=== PATIENT | female | born 1935 | race Caucasian/White ===

== ENCOUNTER 2019-01-21 18:27 | Inpatient (IN) | payer MEDICARE, BC ==
[~2019-01-21] VITALS: Ht 157.5 cm; Wt 62.3 kg
--- NOTE | 2019-01-21 18:35 | NUR ---
PT AAOX4. BIBRA C/O R HIP PAIN SP FALL. PT TRIPPED ON CABLE. -KO. PT UNABLE TO EXTEND RIGHT LEG. NO ACUTE DISTRESS NOTED. RR EVEN AND UNLABORED. PLACED ON MONITOR AND PULSE OX. AWAITING MD FOR EVAL.
--- NOTE | 2019-01-21 18:35 | NUR ---
Note erasmo in EDM - 01/21/19 at 1847 by EVICTOR PT AAOX4. BIBRA C/O FALL. PT TRIPPED ON CABLE. -KO. NO ACUTE DISTRESS NOTED. RR EVEN AND UNLABORED. PLACED ON MONITOR AND PULSE OX. AWAITING MD FOR EVAL.
[2019-01-21 19:16] LABS: BASOPHILS # (AUTO) 0.1 /CMM (0.0-0.2); BASOPHILS % (AUTO) 0.8 % (0.0-2.0); EOSINOPHILS % (AUTO) 0.9 % (0.0-6.0); HEMATOCRIT 43 % (33-45); LYMPHOCYTES # (AUTO) 0.8 /CMM (0.8-4.8); LYMPHOCYTES % (AUTO) 4.7 % (20.0-44.0); MEAN CORPUSCULAR HGB CONC 33 g/dl (31.0-36.0); MEAN CORPUSCULAR VOLUME 94 fL (82-100); MONOCYTES % (AUTO) 11.8 % (2.0-12.0); NEUTROPHILS # (AUTO) 14.1 /CMM (1.8-8.9); NEUTROPHILS % (AUTO) 81.8 % (43.0-81.0); PLATELET COUNT (AUTO) 271 /CMM (150-450); RED BLOOD CELL COUNT(AUTO) 4.59 MIL/uL (4.0-5.2); WHITE BLOOD COUNT (AUTO) 17.3 K/uL (4.3-11.0)
[2019-01-21 19:25] LABS: CALCIUM, SERUM 9.8 mg/dL (8.5-10.1); CREATININE 1.3 mg/dL (0.6-1.3); POTASSIUM 3.7 mmol/L (3.5-5.1)
--- NOTE | 2019-01-21 19:46 | NUR ---
PAGED DR. BOX (ORTHO WEIGHBRIDGE OPERATOR)
--- NOTE | 2019-01-21 19:48 | NUR ---
PT RESTING COMFORTABLY. DENIES PAIN.
[2019-01-21 20:00] VITALS: BP 159/74
--- NOTE | 2019-01-21 20:21 | NUR ---
BED ASSIGNMENT 324-2
[2019-01-21] MEDS ORDERED: Z GUARD REMEDY 2 OZ OINT TP PRN (20:30)
[2019-01-21] MEDS ORDERED: ONDANSETRON HCL/PF 4 MG/2 ML VIAL IVP PRN (20:30)
[2019-01-21] MEDS ORDERED: MAGNESIUM HYDROXIDE 30 ML UDC PO PRN (20:30)
[2019-01-21] MEDS ORDERED: MAG HYDROX/AL HYDROX/SIMETH 30 ML UDC PO PRN (20:30)
--- NOTE | 2019-01-21 20:47 | NUR ---
REPORT GIVEN TO CORTES FOR CHARITO.
--- NOTE | 2019-01-21 20:53 | NUR ---
DR. HARLEY ON THE PHONE WITH ORTHO SYSTEMS DESIGN ENGINEER GONZALEZ TURNER
[2019-01-21 21:00] VITALS: BP 159/74
--- NOTE | 2019-01-21 21:00 | NUR ---
MS TIME STUDY TECHNICIAN INITIAL NOTES ADMIT PT FROM ER VIA [facility] ACCOMPANIED BY ER NURSE AND TECH. DX OF FEMUR FRACTURE. PT IS ALERT ORIENTED X4, LIVES BY HERSELF AND STATED SHE TRIPPED OVER AN EXTENSION CORD AT HOME AND FELL ONTO HER RIGHT LOWER EXTREMITY BUT DENIES ANY ANY HEAD TRAUMA OR LOSS OF CONSCIOUSNESS. SHE DENIES ANY HEADACHE, N/V , VISION CHANGED ,DIZZINESS OR LIGHTHEADEDNESS. DENIES ANY PAIN ON HER NECK AND BACK EXCEPT WHEN SHE'S MOVING . NO SIGNS OF ANY ACUTE DISTRESS NOTED. SKIN WARM AND DRY TO TOUCH, NO SOB NOTED WELL. ORIENTED PT WHERE SHE AT AND HOW TO USED THE CALL LIGHT SYSTEM AND ENCOURAGED HER TO USE IT IF SHE NEEDS SOME HELP OR ASSISTANCE. KEPT HER WARM AND COMFORTABLE AT ALL TIMES HAND HELD THE CALL LIGHT SYSTEM . WILL CONTINUE MONITORING.
[2019-01-21] MEDS: MORPHINE SULFATE INJ 2 MG/ML DISP.SYRIN IV PRN (21:41)
--- NOTE | 2019-01-21 21:41 | NUR ---
THRESHER BROOMCORN NOTES PAIN MGT. C/O RIGHT HIP/FEMUR PAIN , MORPHINE 1 MG ADMINISTERED BY ANOTHER NURSE KRISTA IVP ORDERED. WILL CONTINUE MONITORING.
--- NOTE | 2019-01-21 22:11 | NUR ---
MS PATIENT ACCESS REGISTRAR NOTES CHECKED PT TO RE-ASSESS HER PAIN AND SEEN RESTING COMFORTABLY IN BED WITH EYES CLOSED BUT AROUSE TO TOUCH. BREATHING EVEN AND NON-LABORED. WILL CONTINUE MONITORING. PLACE CALL LIGHT AT REACH.
[2019-01-21] MEDS: IV NS 0.9% 1,000 ML IV PRN (23:08)
[2019-01-22] MEDS: ACETAMINOPHEN 325 MG TABLET PO PRN (00:29)
--- NOTE | 2019-01-22 00:29 | NUR ---
MS REGISTERED NURSE FETAL NOTES PT/WOKE UP AND COMPLAINING OF MILD PAIN OVER HER RIGHT FEMUR. TYLENOL GIVEN WITH SIP OF WATER ORDERED. WILL CONTINUE MONITORING. KEPT HER WARM AND COMFORTABLE AT ALL TIMES. PLACE CALL LIGHT AT REACH.
--- NOTE | 2019-01-22 02:06 | NUR ---
ms iron notes pt resting at this time. no signs of any acute distress noted. kept her warm and comfortable at all times. place call light at reach, will continue monitoring.
--- NOTE | 2019-01-22 05:27 | NUR ---
MS CRIME SCENE EXAMINER NOTES PT RESTING WITH EYES CLOSED NO SIGNS OF ANY ACUTE DISTRESS OR ANY DISCOMFORT NOTED AT THIS TIME. KEPT HER WARM AND COMFORTABLE AT ALL TIMES. WILL CONTINUE MONITORING. CALL LIGHT AT REACH.
[2019-01-22 06:21] LABS: BASOPHILS % (AUTO) 0.4 % (0.0-2.0); HEMATOCRIT 35 % (33-45); LYMPHOCYTES # (AUTO) 0.6 /CMM (0.8-4.8); MEAN CORPUSCULAR HGB CONC 34 g/dl (31.0-36.0); MEAN CORPUSCULAR VOLUME 92 fL (82-100); MONOCYTES # (AUTO) 1.3 /CMM (0.1-1.30); NEUTROPHILS # (AUTO) 8.3 /CMM (1.8-8.9); NEUTROPHILS % (AUTO) 80.6 % (43.0-81.0); PLATELET COUNT (AUTO) 264 /CMM (150-450); RED BLOOD CELL COUNT(AUTO) 3.84 MIL/uL (4.0-5.2); WHITE BLOOD COUNT (AUTO) 10.2 K/uL (4.3-11.0)
[2019-01-22 06:41] LABS: CALCIUM, SERUM 8.8 mg/dL (8.5-10.1); CREATININE 1.1 mg/dL (0.6-1.3); MAGNESIUM 1.9 mg/dL (1.8-2.4); PHOSPHORUS 4.5 mg/dL (2.5-4.9); POTASSIUM 3.5 mmol/L (3.5-5.1)
[2019-01-22 06:46] LABS: THYROID STIMULATING HORMONE 0.698 uIU/mL (0.358-3.74)
--- NOTE | 2019-01-22 07:07 | NUR ---
MS VEGETABLE TIER CLOSING NOTES PT RESTING AT THIS TIME WITH IVF NS AT 75ML/HR INFUSING AT THIS TIME. NO SIGNS OF ANY DISCOMFORT NOTED EXCEPT WHEN SHE MOVE. STABLE KRISTA THE NIGHT . KEPT HER WARM AND COMFORTABLE AT ALL TIMES. BED IN LOW AND LOCK IN POSITION WITH SIDE RAILS X2 UP AND PLACE CALL LIGHT AT REACH. WILL ENDORSE TO AM NURSE FOR CONTINUITY OF CARE.
--- NOTE | 2019-01-22 07:30 | NUR ---
RN MS NOTES PT IN BED, AWAKE, ALERT AND ORIENTED, NOT IN DISTRESS, ON ROOM AIR, WITH COMPLAINT OF RIGHT HIP PAIN WHEN MOVING OR TURNING, IV FLUIDS INFUSING WELL, CALL LIGHT WITHIN REACH, KEPT WARM AND COMFORTABLE IN BED, NEEDS ATTENDED.
[2019-01-22] MEDS ORDERED: HYDR25TA4 PO (07:53)
[2019-01-22] MEDS ORDERED: LOVA20TA2 PO (07:53)
[2019-01-22 08:00] VITALS: BP 131/73
[2019-01-22] MEDS: VALSARTAN 80 MG TABLET PO SCH (08:57)
[2019-01-22] MEDS ORDERED: PANTOPRAZOLE 40 MG VIAL IV SCH (09:00)
--- NOTE | 2019-01-22 09:00 | NUR ---
RN MS NOTES PT SEEN BY DR. VASQUEZ AND YUE ROTH FOR ORTHO, PLAN OF CARE DISCUSSED WITH PT, VERBALIZED UNDERSTANDING, NEEDS ATTENDED.
[2019-01-22] MEDS: MORPHINE SULFATE INJ 2 MG/ML DISP.SYRIN IV PRN ×2 (10:02→17:08)
--- NOTE | 2019-01-22 13:00 | NUR ---
RN MS NOTES PT RESTING COMFORTABLY IN BED, PAIN MEDS GIVEN FOR PAIN MANAGEMENT, TOLERATING CURRENT DIET, CALL LIGHT WITHIN REACH, NEEDS ATTENDED.
[2019-01-22 18:00] VITALS: BP 155/72
--- NOTE | 2019-01-22 18:15 | NUR ---
RN MS NOTES PT IN BED, AWAKE, ALERT AND ORIENTED, PAIN MEDS GIVEN FOR PAIN MANAGEMENT, IV FLUIDS INFUSING WELL, CALL LIGHT WITHIN REACH, INSERTED DERAS CATHETER PER ORDER OF DR. CARMICHAEL, TOLERATED WELL, DRAINING WELL WITH CLEAR, YELLOW URINE, TOLERATING CURRENT DIET, KEPT WARM AND COMFORTABLE IN BED.
[2019-01-22] MEDS: IV NS 0.9% 1,000 ML IV PRN (19:05)
--- NOTE | 2019-01-22 19:31 | NUR ---
MS RN OPENING NOTES PATIENT IN BED, ALERT AND ORIENTED X4. BREATHING EVEN AND UNLABORED ON ROOM AIR. DENIES ACUTE DISTRESS, NO ACUTE PAIN. IV ON R WRIST #20 G WITH NS AT 75ML/HR RUNNING. CLEAN, DRY AND INTACT. SHOWS NO SIGNS OF REDNESS, NO INFILTRATION. DERAS CATHETER IS IN PLACE AND FLOWING. SAFETY PRECAUTION ARE IN PLACE. BED IN LOWEST POSITION, LOCKED, AND CALL LIGHT KEPT WITHIN REACH. WILL CONTINUE TO MONITOR.
[2019-01-22 20:00] VITALS: BP 150/70
[2019-01-22] MEDS ORDERED: LOVASTATIN (NON FORMULARY) 20 MG TABLET PO SCH (22:00)
[2019-01-22] MEDS: ATORVASTATIN 10 MG TABLET PO SCH (22:15)
[2019-01-23] VITALS (9 sets, daily range): BP systolic 107–148; BP diastolic 49–76
[2019-01-23 06:38] LABS: BASOPHILS % (AUTO) 0.4 % (0.0-2.0); EOSINOPHILS % (AUTO) 0.7 % (0.0-6.0); HEMATOCRIT 33 % (33-45); HEMOGLOBIN 11.1 g/dL (11.5-14.8); LYMPHOCYTES # (AUTO) 0.5 /CMM (0.8-4.8); LYMPHOCYTES % (AUTO) 5.8 % (20.0-44.0); MEAN CORPUSCULAR HGB CONC 34 g/dl (31.0-36.0); MEAN CORPUSCULAR VOLUME 92 fL (82-100); MONOCYTES # (AUTO) 1.4 /CMM (0.1-1.30); NEUTROPHILS # (AUTO) 7.4 /CMM (1.8-8.9); NEUTROPHILS % (AUTO) 78.1 % (43.0-81.0); PLATELET COUNT (AUTO) 205 /CMM (150-450); RED BLOOD CELL COUNT(AUTO) 3.57 MIL/uL (4.0-5.2); WHITE BLOOD COUNT (AUTO) 9.4 K/uL (4.3-11.0)
--- NOTE | 2019-01-23 06:44 | NUR ---
MS RN CLOSING NOTES PATIENT ASLEEP, EASILY AROUSED. ALERT AND ORIENTED X4. BREATHING EVEN AND UNLABORED ON ROOM AIR. DENIES ACUTE DISTRESS, NO ACUTE PAIN. IV ON R WRIST #20 G WITH NS AT 75ML/HR RUNNING. CLEAN, DRY AND INTACT. SHOWS NO SIGNS OF REDNESS, NO INFILTRATION. DERAS CATHETER IS IN PLACE FLOWING CLEAR AND YELLOW. ROUTINE MEDS GIVEN ORDERED. ATTENDED TO PATIENTS NEEDS. PATIENT KEPT CLEAN, DRY, AND COMFORTABLE. SAFETY PRECAUTION ARE IN PLACE. BED IN LOWEST POSITION, LOCKED, AND CALL LIGHT KEPT WITHIN REACH. WILL ENDORSE TO ONCOMING NURSE
[2019-01-23 07:03] LABS: ALBUMIN 2.7 g/dL (3.4-5.0); BILIRUBIN,TOTAL 0.7 mg/dL (0.2-1.0); CALCIUM, SERUM 8.3 mg/dL (8.5-10.1); CREATININE 0.8 mg/dL (0.6-1.3); MAGNESIUM 1.9 mg/dL (1.8-2.4); PHOSPHORUS 2.5 mg/dL (2.5-4.9); POTASSIUM 3.5 mmol/L (3.5-5.1); TOTAL PROTEIN, SERUM 5.6 g/dL (6.4-8.2)
--- NOTE | 2019-01-23 07:15 | NUR ---
MS RN NOTES RECEIVED PATIENT IN BED, ALERT AND ORIENTED X4. NO SOB. DENIES ANY C/O PAIN NOR DISCOMFORT AT THIS TIME. RIGHT WRIST G# 20 INTACT AND PATENT INFUSING 75ML/HR NOEL WELL. NPO STATUS FOR SCHEDULED INTRAMEDULLARY RODDING OF RIGHT HIP. BED IN LOWEST POSITION, LOCKED. CALL LIGHT WITHIN REACH. RESTING COMFORTABLY IN BED.
[2019-01-23] MEDS: IV NS 0.9% 1,000 ML IV PRN ×2 (08:45→22:24)
[2019-01-23] MEDS: VALSARTAN 80 MG TABLET PO SCH (08:51)
[2019-01-23] MEDS: MORPHINE SULFATE INJ 2 MG/ML DISP.SYRIN IV PRN (09:44)
--- NOTE | 2019-01-23 09:45 | NUR ---
MS RN NOTES XUAN FROM OR CALLED AND RECEIVED ORDER FROM Haydee BREWER FOR TYPE AND SCREEN STAT AND BLOOD TRANSFUSION, CARRIED OUT. INFORMED XUAN FROM OR THAT PATIENT C/O PAIN AND OK TO GIVE PAIN MED AT THIS TIME. PAT REMAINS TO BE NPO.
--- NOTE | 2019-01-23 12:19 | NUR ---
MS RN NOTES PATIENT OFF UNIT, WENT TO OR FOR INTRAMEDULLARY RODDING OF RIGHT HIP. PATIENT LEFT UNIT IN STABLE CONDITION. PATIENT DID NOT WANT TO REMOVE RING AND WATCH, INFORMED PATIENT THAT BELONGINGS WILL BE PUT IN SAFE BUT PATIENT REFUSED AND WANTS TO BRING IT WITH HER, HEATHER AT BEDSIDE ALSO EDUCATED PATIENT ABOUT BELONGINGS PRIOR TO LEAVING UNIT FOR OR BUT PATIENT REFUSED.
[2019-01-23] MEDS ORDERED: BUPIVACAINE 0.5 % PF 150 MG/30 ML VIAL ONE (13:44)
[2019-01-23] MEDS ORDERED: BACITRACIN 50000 UNITS/VIAL ONE (13:44)
[2019-01-23] MEDS ORDERED: SEVOFLURANE 250 ML BOTTLE IH ONE (13:55)
[2019-01-23] MEDS ORDERED: DESFLURANE 240 ML BOTTLE IH ONE (13:55)
[2019-01-23 15:35] LABS: BASOPHILS # (AUTO) 0.1 /CMM (0.0-0.2); BASOPHILS % (AUTO) 0.4 % (0.0-2.0); EOSINOPHILS % (AUTO) 0.3 % (0.0-6.0); HEMATOCRIT 32 % (33-45); HEMOGLOBIN 10.7 g/dL (11.5-14.8); LYMPHOCYTES # (AUTO) 0.5 /CMM (0.8-4.8); LYMPHOCYTES % (AUTO) 2.4 % (20.0-44.0); MEAN CORPUSCULAR HGB CONC 33 g/dl (31.0-36.0); MEAN CORPUSCULAR VOLUME 93 fL (82-100); MONOCYTES # (AUTO) 2.4 /CMM (0.1-1.30); MONOCYTES % (AUTO) 11.8 % (2.0-12.0); NEUTROPHILS # (AUTO) 17.1 /CMM (1.8-8.9); NEUTROPHILS % (AUTO) 85.1 % (43.0-81.0); PLATELET COUNT (AUTO) 233 /CMM (150-450); RED BLOOD CELL COUNT(AUTO) 3.45 MIL/uL (4.0-5.2); WHITE BLOOD COUNT (AUTO) 20.1 K/uL (4.3-11.0)
[2019-01-23] MEDS ORDERED: HYDROCODONE/APAP 5/325MG 1 EACH TABLET PO PRN ×2 (16:00)
--- NOTE | 2019-01-23 16:00 | NUR ---
MS RN NOTES RECEIVED PATIENT FROM OR. NO SOB. DENIES ANY C/O PAIN NOR DISCOMFORT. SCD IN PLACE. IN NO APPARENT DISTRESS AT THIS TIME. DRESSING TO RT HIP INTACT. NO S/S OF BLEEDING. CALL LIGHT WITHIN REACH. ABLE TO VERBALIZE NEEDS.
--- NOTE | 2019-01-23 19:05 | NUR ---
MS RN CLOSING NOTES PATIENT RESTING COMFORTABLY IN BED, ALERT AND ORIENTED X4. NO SOB. OFFERED PAIN MED BUT DENIES ANY C/O PAIN NOR DISCOMFORT AT THIS TIME. RIGHT WRIST G# 20 INTACT AND PATENT INFUSING 75ML/HR NOEL WELL. DRESSING INTACT TO RT HIP. BED IN LOWEST POSITION, LOCKED. CALL LIGHT WITHIN REACH. RESTING COMFORTABLY IN BED. IN NO APPARENT DISTRESS.
--- NOTE | 2019-01-23 19:32 | NUR ---
MS RN RECEIVE PT IN BED A/O X 3, S/P IM RODDING OF RIGHT HIP WITH SURGICAL DRESSING INTACT NO S/S OF BLEEDING NOTED. STABLE AND NOT IN DISTRESS, SAFETY MEASURES AT ALL TIMES. WILL CONT TO MONITOR
[2019-01-23] MEDS: ATORVASTATIN 10 MG TABLET PO SCH (22:06)
[2019-01-23] MEDS: ANCEF 1 G in IV D5W 50 ML IV SCH (22:06)
[2019-01-23] MEDS: ACETAMINOPHEN 325 MG TABLET PO PRN (23:52)
[2019-01-24] MEDS: ANCEF 1 G in IV D5W 50 ML IV SCH (05:18)
--- NOTE | 2019-01-24 06:42 | NUR ---
PT ASLEEP AND EASILY AWAKEN, MONITORED FOR PAIN NO C/O OF PAIN AT THIS TIME. S/P R HIP IM RODDING DRESSING INTACT NO S/S OF INFECTION, DRESSING INTACT NO S/S OF BLEEDING NOTED. NEEDS ATTENDED AND ANTICIPATED. KEPT CLEAN, DRY AND COMFORTABLE. AM CARE RENDERED. ASSISTED REPOSITION Q2HR. OFFLOAD HEELS AND ELBOWS AT ALL TIMES. WBAT. SAFETY MEASURES AT ALL TIMES. WILL ENDORSE TO NEXT SHIFT.
[2019-01-24 06:46] LABS: BASOPHILS # (AUTO) 0.1 /CMM (0.0-0.2); BASOPHILS % (AUTO) 0.6 % (0.0-2.0); EOSINOPHILS % (AUTO) 0.4 % (0.0-6.0); HEMATOCRIT 26 % (33-45); HEMOGLOBIN 8.9 g/dL (11.5-14.8); LYMPHOCYTES # (AUTO) 0.9 /CMM (0.8-4.8); LYMPHOCYTES % (AUTO) 9.7 % (20.0-44.0); MEAN CORPUSCULAR HGB CONC 34 g/dl (31.0-36.0); MEAN CORPUSCULAR VOLUME 93 fL (82-100); MONOCYTES # (AUTO) 2.1 /CMM (0.1-1.30); MONOCYTES % (AUTO) 22.9 % (2.0-12.0); NEUTROPHILS % (AUTO) 66.4 % (43.0-81.0); PLATELET COUNT (AUTO) 189 /CMM (150-450); RED BLOOD CELL COUNT(AUTO) 2.77 MIL/uL (4.0-5.2)
[2019-01-24 06:49] LABS: ALBUMIN 2.3 g/dL (3.4-5.0); BILIRUBIN,TOTAL 0.5 mg/dL (0.2-1.0); CALCIUM, SERUM 8.2 mg/dL (8.5-10.1); CREATININE 1.3 mg/dL (0.6-1.3); PHOSPHORUS 2.8 mg/dL (2.5-4.9); POTASSIUM 4.1 mmol/L (3.5-5.1); TOTAL PROTEIN, SERUM 5.1 g/dL (6.4-8.2)
[2019-01-24 08:00] VITALS: BP 111/48
--- NOTE | 2019-01-24 08:00 | NUR ---
m/s clinical rehabilitation specialist: initial assessment received pt in bed awake, a/ox4 with dx: s/p right hip IM rodding. surgical dressing to right hip intact, clean, and dry. no c/o pain or any discomfort. f/c draining to gravity. for p.t. eval. instructed to call for assistance. will continue to monitor.
[2019-01-24] MEDS: VALSARTAN 80 MG TABLET PO SCH (08:04)
[2019-01-24] MEDS: ENOXAPARIN SODIUM 40 MG/0.4 ML DISP.SYRIN SQ SCH (08:52)
[2019-01-24 08:54] LABS: LYMPHOCYTES % (MANUAL) 9 % (16-48); MONOCYTES % (MANUAL) 14 % (0-11.0); NEUTROPHILS % (MANUAL) 77 (42-76)
[2019-01-24 08:57] LABS: APPEARANCE,URINE HAZY (CLEAR); BILIRUBIN,URINE NEGATIVE (NEGATIVE); BLOOD, URINE 1+ Ery/uL (NEGATIVE); COLOR,URINE YELLOW (YELLOW); PROTEIN,URINE 1+ mg/dl (NEGATIVE); UGLUCOSE NEGATIVE (NEGATIVE)
[2019-01-24 08:58] LABS: KETONES,URINE 1+ (NEGATIVE); LEUKOCYTE ESTERASE ,URINE NEGATIVE (NEGATIVE); NITRITE, URINE POSITIVE (NEGATIVE); UROBILINOGEN,URINE 0.2 EU/dL (0.2)
[2019-01-24 09:02] LABS: RBC,URINE 0-2 /HPF (0-2); WBC,URINE NONE SEEN /HPF (0-3)
[2019-01-24 09:04] LABS: BACTERIA,URINE Rare /HPF (None Seen)
--- NOTE | 2019-01-24 10:30 | NUR ---
m/s dna sequencing associate: p.t. eval p.t. in room at this time for eval and tx.
--- NOTE | 2019-01-24 12:00 | NUR ---
m/s aquatic facility manager: md visit seen and examined by dr. lubin at this time. pt resting comfortable in bed. will continue to monitor.
[2019-01-24 13:12] LABS: SQUAMOUS EPITHELIAL CELL,UR Few /HPF (None Seen)
--- NOTE | 2019-01-24 13:50 | NUR ---
m/s pipe out worker: ortho f/u pato bailey (p.a.) here and informed him that pt is not ready to remove her cooley catheter, stated, "that's fine, tomorrow is okay." will endorsed accordingly.
--- NOTE | 2019-01-24 14:30 | NUR ---
m/s long winder tender: notes pato bailey (jaimee) at bedside at this time.
[2019-01-24 16:00] VITALS: BP 111/51
--- NOTE | 2019-01-24 16:30 | NUR ---
m/s household worker: notes pt resting comfortable. no c/o pain or any discomfort. instructed to call for assistance. will continue to monitor.
[2019-01-24] MEDS: ACETAMINOPHEN 325 MG TABLET PO PRN (18:05)
--- NOTE | 2019-01-24 18:20 | NUR ---
m/s swimming pool maintenance: notes resting comfortable in bed. no distress noted. needs attended. instructed to call for assistance. will monitor.
--- NOTE | 2019-01-24 19:00 | NUR ---
m/s woods superintendent: notes report given to emely (rn) for continuity of care.
--- NOTE | 2019-01-24 20:00 | NUR ---
RN NOTES PATIENT ALERT AND ORIENTED X4, STABLE ON ROOM AIR, NO COMPLAIN OF PAIN, S/P RIGHT HIP IM RODDING 01/23/19, DRESSING TO RIGHT THIGH DRY AND INTACT, DENIES NUMBNESS, DERAS CATHETER DRAINING WELL WITH CLEAR AND YELLOW URINE, KEPT SAFE, WILL CONTINUE TO MONITOR
[2019-01-24 20:45] VITALS: BP 128/53
[2019-01-24] MEDS: ATORVASTATIN 10 MG TABLET PO SCH (21:20)
[2019-01-24] MEDS: IV NS 0.9% 1,000 ML IV PRN (21:55)
--- NOTE | 2019-01-25 05:42 | NUR ---
PATIENT TRANSFERRED TO 200 IN IN STABLE CONDITION. NO C/O PAIN OR DISCOMFORT. PERIPHERAL LINE INTACT AND PATENT. ALL BELONGINGS TAKEN WITH PATIENT. REPORT GIVEN TO ROSALIA FOR CONTINUATION OF CARE
--- NOTE | 2019-01-25 06:39 | NUR ---
RN NOTES PATIENT ALERT AND ORIENTED X4, STABLE ON ROOM AIR, NO COMPLAIN OF PAIN, DERAS CATHETER DISCONTINUED, EDUCATED PATIENT REGARDING S/S OF URINARY RETENTION, ENCOURAGED PATIENT TO AMBULATE TO THE TOILET OR USE BEDSIDE COMMODE TO VOID. DRESSING DRY AND INTACT, DENIES NUMBNESS, ABLE TO PERFORM PLANTARFLEXION AND DORSIFLEXION. CONTINUE PT, PAIN MANAGEMENT, POSSIBLE DC TO [facility]
--- NOTE | 2019-01-25 07:29 | NUR ---
MS RN OPENING NOTE RECEIVED PATIENT IN BED SLEEPING COMFORTABLY. PATIENT IN NO ACUTE DISTRESS. NO SOB NOTED. PATIENT BREATHING IS EVEN AND UNLABORED. NO FACIAL GRIMACING NOTED. PATIENT DRESSING IS DRY AND INTACT. PATIENT BED IS LOCKED AND IN LOWEST POSITION. CALL LIGHT WITHIN REACH. BED ALARM IS ON. SAFETY PRECAUTIONS IN PLACE. WILL CONTINUE TO MONITOR.
[2019-01-25 07:33] LABS: BASOPHILS # (AUTO) 0.1 /CMM (0.0-0.2); BASOPHILS % (AUTO) 0.8 % (0.0-2.0); EOSINOPHILS % (AUTO) 2.6 % (0.0-6.0); HEMATOCRIT 22 % (33-45); HEMOGLOBIN 7.5 g/dL (11.5-14.8); LYMPHOCYTES # (AUTO) 0.7 /CMM (0.8-4.8); LYMPHOCYTES % (AUTO) 6.8 % (20.0-44.0); MEAN CORPUSCULAR HGB CONC 34 g/dl (31.0-36.0); MEAN CORPUSCULAR VOLUME 93 fL (82-100); MONOCYTES # (AUTO) 1.7 /CMM (0.1-1.30); MONOCYTES % (AUTO) 16.6 % (2.0-12.0); NEUTROPHILS # (AUTO) 7.4 /CMM (1.8-8.9); NEUTROPHILS % (AUTO) 73.2 % (43.0-81.0); PLATELET COUNT (AUTO) 186 /CMM (150-450); RED BLOOD CELL COUNT(AUTO) 2.38 MIL/uL (4.0-5.2); WHITE BLOOD COUNT (AUTO) 10.2 K/uL (4.3-11.0)
[2019-01-25 08:00] VITALS: BP 117/60
[2019-01-25 08:00] LABS: CALCIUM, SERUM 8.1 mg/dL (8.5-10.1); PHOSPHORUS 2.9 mg/dL (2.5-4.9)
[2019-01-25] MEDS: VALSARTAN 80 MG TABLET PO SCH (08:39)
[2019-01-25] MEDS: ENOXAPARIN SODIUM 40 MG/0.4 ML DISP.SYRIN SQ SCH (08:40)
[2019-01-25 08:48] LABS: IRON, SERUM 13 ug/dl (50-175); TOTAL IRON BINDING CAPACITY 166 ug/dl (250-450)
[2019-01-25 09:13] LABS: BAND % (MANUAL) 1 % (0.0-5.0); EOSINOPHILS % (MANUAL) 1 % (0-4); LYMPHOCYTES % (MANUAL) 6 % (16-48); MONOCYTES % (MANUAL) 18 % (0-11.0); NEUTROPHILS % (MANUAL) 74 (42-76)
[2019-01-25 09:41] LABS: FERRITIN 336 ng/mL (8-388)
--- NOTE | 2019-01-25 10:00 | NUR ---
MS RN NOTE DR. CARMICHAEL NOTIFIED AND AWARE OF PATIENTS HEMOGLOBIN AND HEMATOCRIT FOR TODAY. NO ACTIVE BLEEDING. PER MD JUST CONTINUE TO MONITOR.
[2019-01-25 16:00] VITALS: BP 135/59
[2019-01-25] MEDS: IV NS 0.9% 1,000 ML IV PRN (16:23)
--- NOTE | 2019-01-25 18:30 | NUR ---
MS RN NOTE SPOKE WITH DR. CARMICHEAL REGARDING PATIENT NOT URINATING ON HER OWN SINCE REMOVING THE DERAS CATHETER THIS AM. PER ORDERS TO REINSERT DERAS CATHETER AFTER BLADDER SCAN SHOWING >275 ML. DERAS CATHETER INSERTED, PATIENT TOLERATED WELL. DERAS CATHETER HANGING TO GRAVITY DRAINING CLEAR YELLOW FLUID. Addendum: 01/25/19 at 1840 by JUAN MANSFIELD RN DERAS CATHETER DRAINED 350ML CLEAR YELLOW FLUID.
--- NOTE | 2019-01-25 18:32 | NUR ---
MS RN CLOSING NOTE PATIENT IN BED RESTING COMFORTABLY. PATIENT IN NO ACUTE DISTRESS. NO SOB NOTED. PATIENT BREATHING IS EVEN AND UNLABORED. PATIENT IN NO PAIN AT THIS TIME. NEEDS AND CONCERNS ADDRESSED. PATIENT TURNED AND REPOSITIONED MUCH PATIENT ALLOWED. EXTREMITIES OFFLOADED ON PILLOWS. PATIENT DERAS CATHETER HANGING TO GRAVITY. SURGICAL DRESSING IS DRY AND INTACT. PATIENT KEPT CLEAN, DRY, AND COMFORTABLE THROUGHOUT SHIFT. PATIENT BED IS LOCKED AND IN LOWEST POSITION. CALL LIGHT WITHIN REACH. BED ALARM IS ON. WILL ENDORSE CARE TO PM SHIFT FOR CHARITO.
--- NOTE | 2019-01-25 19:20 | NUR ---
RN OPENING NOTES RECEIVED PATIENT AWAKE IN BED. PATIENT ALERT AND ORIENTED X4. CURRENTLY ON ROOM AIR, TOLERATING WELL. NO SIGNS OF RESPIRATORY DISTRESS, NO SHORTNESS OF BREATH NOTED. NO COMPLAINTS OF PAIN OR DISCOMFORT AT THIS TIME. PERIPHERAL LINE INTACT AND PATENT. RIGHT THIGH DRESSING, DRY, INTACT. DERAS CATHETER IN PLACE, DRAINING WELL WITH CLEAR AND YELLOW URINE. SAFETY PRECAUTIONS IMPLEMENTED; CALL LIGHT WITHIN REACH, BED LOCKED, BED LOWEST POSITION, BILATERAL UPPER SIDE RAILS UP. WILL CONTINUE TO MONITOR.
[2019-01-25 20:00] VITALS: BP 130/58
[2019-01-25 20:06] VITALS: BP 130/58
[2019-01-25] MEDS: ATORVASTATIN 10 MG TABLET PO SCH (21:06)
[2019-01-26] VITALS (10 sets, daily range): BP systolic 121–150; BP diastolic 60–70
[2019-01-26] MEDS: IV NS 0.9% 1,000 ML IV PRN (04:50)
--- NOTE | 2019-01-26 06:36 | NUR ---
RN CLOSING NOTES PATIENT IS ASLEEP, RESTING IN BED, EASILY AROUSABLE TO NAME. ALERT AND ORIENTED X4. STABLE ON ROOM AIR. NO RESPIRATORY DISTRESS. NO SHORTNESS OF BREATH NOTED. PATIENT STABLE. DRESSING DRY AND INTACT, NO COMPLICATIONS. DERAS CATHETER DRAINING WELL WITH CLEAR AND YELLOW URINE. PATIENT KEPT CLEAN, DRY AND COMFORTABLE. NO COMPLAINTS OF PAIN OR DISCOMFORT. SAFETY PRECAUTIONS IMPLEMENTED; CALL LIGHT WITHIN REACH, BED LOCKED, BED LOWEST POSITION, BILATERAL UPPER SIDE RAILS UP. WILL CONTINUE TO MONITOR AND WILL ENDORSE TO DAY SHIFT NURSE FOR CONTINUITY OF CARE.
--- NOTE | 2019-01-26 07:22 | NUR ---
MS RN OPENING NOTE RECEIVED PATIENT IN BED SLEEPING COMFORTABLY. PATIENT IN NO ACUTE DISTRESS. NO SOB NOTED. PATIENT BREATHING IS EVEN AND UNLABORED. NO FACIAL GRIMACING NOTED. PATIENT DRESSING IS DRY AND INTACT. DERAS CATHETER IN PLACE DRAINING TO GRAVITY, DRAINING CLEAR YELLOW FLUID. PATIENT BED IS LOCKED AND IN LOWEST POSITION. CALL LIGHT WITHIN REACH. BED ALARM IS ON. SAFETY PRECAUTIONS IN PLACE. WILL CONTINUE TO MONITOR.
[2019-01-26 08:27] LABS: BASOPHILS # (AUTO) 0.1 /CMM (0.0-0.2); BASOPHILS % (AUTO) 0.7 % (0.0-2.0); EOSINOPHILS % (AUTO) 2.2 % (0.0-6.0); LYMPHOCYTES # (AUTO) 0.7 /CMM (0.8-4.8); LYMPHOCYTES % (AUTO) 7.4 % (20.0-44.0); MEAN CORPUSCULAR HGB CONC 34 g/dl (31.0-36.0); MEAN CORPUSCULAR VOLUME 94 fL (82-100); MONOCYTES # (AUTO) 1.6 /CMM (0.1-1.30); MONOCYTES % (AUTO) 16.2 % (2.0-12.0); NEUTROPHILS # (AUTO) 7.2 /CMM (1.8-8.9); NEUTROPHILS % (AUTO) 73.5 % (43.0-81.0); PLATELET COUNT (AUTO) 205 /CMM (150-450); WHITE BLOOD COUNT (AUTO) 9.8 K/uL (4.3-11.0)
[2019-01-26 08:37] LABS: HEMATOCRIT 20 % (33-45); HEMOGLOBIN 6.8 g/dL (11.5-14.8)
[2019-01-26 08:40] LABS: ALBUMIN 1.9 g/dL (3.4-5.0); BILIRUBIN,TOTAL 0.6 mg/dL (0.2-1.0); CALCIUM, SERUM 7.9 mg/dL (8.5-10.1); CREATININE 0.9 mg/dL (0.6-1.3); MAGNESIUM 2.1 mg/dL (1.8-2.4); PHOSPHORUS 2.2 mg/dL (2.5-4.9); POTASSIUM 4.3 mmol/L (3.5-5.1); TOTAL PROTEIN, SERUM 4.9 g/dL (6.4-8.2)
[2019-01-26] MEDS: ENOXAPARIN SODIUM 40 MG/0.4 ML DISP.SYRIN SQ SCH (08:52)
[2019-01-26] MEDS: VALSARTAN 80 MG TABLET PO SCH (08:55)
--- NOTE | 2019-01-26 08:55 | NUR ---
MS RN NOTE CONTACTED DR. CARMICHAEL REGARDING PATIENT HGB 6.8 AND HCT 20. WILL BE PAGED BACK.
--- NOTE | 2019-01-26 09:01 | NUR ---
MS RN NOTE HELD LOVENOX DUE TO HBG 6.8 AND HCT 20. NO SIGNS AND SYMPTOMS OF BLEEDING PRESENT.
--- NOTE | 2019-01-26 09:45 | NUR ---
MS RN NOTE CONTACTED DR. CARMICHAEL TWICE FOR CRITICAL LAB VALUE HGB 6.8 AND HCT 20. PER MD ORDERS TO TRANSFUSE 1PRBC.
[2019-01-26 10:29] LABS: EOSINOPHILS % (MANUAL) 2 % (0-4); LYMPHOCYTES % (MANUAL) 5 % (16-48); MONOCYTES % (MANUAL) 10 % (0-11.0); NEUTROPHILS % (MANUAL) 83 (42-76)
[2019-01-26] MEDS ORDERED: K PHOS NEUTRAL 250 MG TABLET PO ONE (11:00)
--- NOTE | 2019-01-26 12:00 | NUR ---
MS RN NOTE PATIENT TO BE DISCHARGED AFTER BLOOD TRANSFUSION AND [facility] PER [facility] CARMICHAEL.
[2019-01-26] MEDS ORDERED: SOD FERRIC GLUC 125 MG in IV NS 0.9% 100 ML IV SCH (14:00)
--- NOTE | 2019-01-26 14:40 | NUR ---
MS RN NOTE PATIENT STARTED ON BLOOD TRANSFUSION. VITAL SIGNS PRIOR BP 128/60. HR 87, TEMP 98.4 SPO2 96. PATIENT IN NO ACUTE DISTRESS. NO SOB NOTED. PATIENT BREATHING IS EVEN AND UNLABORED.
--- NOTE | 2019-01-26 15:29 | NUR ---
MS RN NOTE PATIENT CURRENTLY HAVING BLOOD TRANSFUSION. PATIENT IN NO ACUTE DISTRESS. VITAL SIGNS WNL. NO SOB NOTED. NO CURRENT ADVERSE SIGNS OR SYMPTOMS. WILL CONTINUE TO MONITOR.
--- NOTE | 2019-01-26 18:14 | NUR ---
MS RN NOTE PATIENT TOLERATED BLOOD TRANSFUSION WELL. PATIENT VITAL SIGNS WNL. PATIENT STATES NO PAIN OR DISCOMFORT. NO ADVERSE SIGNS OR SYMPTOMS. PATIENT BREATHING IS EVEN AND UNLABORED. PATIENT IN NO ACUTE DISTRESS. NO SOB NOTED.
--- NOTE | 2019-01-26 18:50 | NUR ---
MS RN CLOSING NOTE PATIENT IN BED RESTING COMFORTABLY. PATIENT IN NO ACUTE DISTRESS. NO SOB NOTED. PATIENT BREATHING IS EVEN AND UNLABORED. PATIENT TOLERATED BLOOD TRANSFUSION WELL. PATIENT TO BE PICKED UP FOR DISCHARGED AT 2030 TONIGHT BY AMBULANCE. PATIENT TO GO TO [facility] WITH DERAS CATHETER IN PLACE PER MD ORDER. WILL ENDORSE TO MANUFACTURING DIRECTOR TO REMOVE IVS WHEN DISCHARGED. REPORT GIV[facility] TO JUAN J TANNER AT [facility]. PATIENT SKIN ASSESSED NO NEW SKIN BREAKDOWN NOTED. PATIENT SURGICAL DRESSING CLEAN, DRY, AND INTACT. ORDERS FOR MD TO CHANGE DRESSING ONLY. DC INSTRUCTIONS PROVIDED, AND PATIENT VERBALIZED UNDERSTANDING. PATIENT SIGNED BELONGINGS LIST AND ACKNOWLEDGES ALL BELONGINGS PRESENT AND WITH HER. PATIENT KEPT CLEAN, DRY, AND COMFORTABLE THROUGHOUT SHIFT. PATIENT NEEDS AND CONCERNS ADDRESSED PATIENT EXTREMITIES OFFLOADED ON PILLOWS. MD IS AWARE OF DISCHARGE. PATIENT BED IS LOCKED AND IN LOWEST POSITION. CALL LIGHT WITHIN REACH. WILL ENDORSE CARE TO PM SHIFT FOR CHARITO.
--- NOTE | 2019-01-26 20:49 | NUR ---
COMMUNITY HEALTH SPECIALIST NOTES PATIENT DISCHARGED AT 2044. PICKED UP BY AMBULANCE. VITALS STABLE. PRIOR TO DISCHARGE: 150/66, PULSE 91, RESP 18, TEMP 98.4 F, O2 SAT 98%. PATIENT REQUESTED MORPHINE PRIOR TO TRANSFER TO [facility] FOR POSSIBLE PAIN/DISCOMFORT. CALLED JUAN J FROM [facility] AND THEY ACCEPT PATIENT.
== END 2019-01-26 20:45 | DRG 482 ==
LOC: ER 18:32 → MED 20:20 → MEDSG2 01-25 05:33
PROVIDERS: ADMIT Registered Nurse; ATTEND Registered Nurse
PROC: 0QS606Z Reposition Right Upper Femur with Intramedullary Internal Fixation Device, Open Approach (ICD-10-PCS; principal; 2019-01-23)
PROC: 30233N1 Transfusion of Nonautologous Red Blood Cells into Peripheral Vein, Percutaneous Approach (ICD-10-PCS; 2019-01-23)
DX: S72.141A Displaced intertrochanteric fracture of right femur, initial encounter for closed fracture (principal); D72.829 Elevated white blood cell count, unspecified; W01.0XXA Fall on same level from slipping, tripping and stumbling without subsequent striking against object, initial encounter; Y92.009 Unspecified place in unspecified non-institutional (private) residence as the place of occurrence of the external cause; E66.9 Obesity, unspecified; E78.5 Hyperlipidemia, unspecified; I10 Essential (primary) hypertension; I45.10 Unspecified right bundle-branch block; M16.12 Unilateral primary osteoarthritis, left hip; M16.11 Unilateral primary osteoarthritis, right hip; Z68.25 Body mass index [BMI] 25.0-25.9, adult; C50.912 Malignant neoplasm of unspecified site of left female breast; I70.0 Atherosclerosis of aorta; Z96.651 Presence of right artificial knee joint; Z92.3 Personal history of irradiation; Z85.828 Personal history of other malignant neoplasm of skin; Z85.3 Personal history of malignant neoplasm of breast; M20.11 Hallux valgus (acquired), right foot
CPT/HCPCS: 36415; 71045-TC; 73501; 73502; 73552; 73564-TC; 73590-TC; 73600-TC; 73620-TC; 80048-TC; 80053-TC; 80061-TC; 81000-TC; 82728-TC; 82962-TC; 83540-TC; 83735-TC; 84100-TC; 84443-TC; 85025-TC; 85730-TC; 86850-TC; 86921-TC; 87081-TC; 87086-TC; 93307-TC; 97110-TC; 97116-TC; 97530-TC; G0378; J0690; J1100; J1650; J2001; J2270; J2916; J3490; J7030; J7060; P9016-BL